=== PATIENT | male | born 1945 | race Caucasian/White ===

== ENCOUNTER → 2018-02-04 | Outpatient (CLI) | payer OTHER | LOC: BMCIMAGING 08:13 | PROVIDERS: ATTEND Internal Medicine | DX: R06.02 Shortness of breath (principal); J84.10 Pulmonary fibrosis, unspecified | CPT/HCPCS: G0103 ==

== ENCOUNTER → 2018-02-11 | Outpatient (CLI) | payer OTHER | LOC: BMCIMAGING 08:05 | PROVIDERS: ATTEND Internal Medicine | DX: R91.1 Solitary pulmonary nodule (principal) ==

== ENCOUNTER → 2018-02-22 | Outpatient (CLI) | payer OTHER | LOC: FIMAGING 15:14 | PROVIDERS: ATTEND Internal Medicine | DX: J98.4 Other disorders of lung (principal) ==